=== PATIENT | female | born 1950 | race African-American/Black ===

== ENCOUNTER 2021-11-13 18:21 | Emergency (ER) | payer OTHER, MEDICARE ==
[~2021-11-13] VITALS: Ht 170.2 cm; Wt 75.0 kg
[2021-11-13] MEDS ORDERED: ACETAMINOPHEN 325MG TABLET PO ONE (19:15)
[2021-11-13] MEDS ORDERED: LIDOCAINE 5% PATCH TOP SCH (19:15)
[2021-11-13] MEDS ORDERED: BACLOFEN 10MG TABLET PO ONE (19:15)
[2021-11-13] MEDS ORDERED: BACL-141 MT (20:10)
[2021-11-13] MEDS ORDERED: ACET-2708 MT (20:10)
[2021-11-13] MEDS ORDERED: LIDO700A15 TP (20:10)
[2021-11-13 20:25] VITALS: BP 130/86
== END 2021-11-13 20:25 | disposition home or self-care (01) ==
LOC: ER 18:21
DX: I10 Essential (primary) hypertension (principal); M79.642 Pain in left hand; S13.4XXA Sprain of ligaments of cervical spine, initial encounter; V49.59XA Passenger injured in collision with other motor vehicles in traffic accident, initial encounter; Y93.89 Activity, other specified; Y92.89 Other specified places as the place of occurrence of the external cause; Y99.8 Other external cause status; E78.00 Pure hypercholesterolemia, unspecified; Z98.890 Other specified postprocedural states
CPT/HCPCS: 73130; 99284